=== PATIENT | male | born 1980 | race Caucasian/White ===

== ENCOUNTER 2019-11-21 16:34 | Emergency (ER) | payer SELFPAY ==
[2019-11-21] MEDS ORDERED: diphenhydrAMINE 25 MG CAP ONE (16:54)
[2019-11-21] MEDS ORDERED: predniSONE 20 MG TAB ONE (16:54)
== END 2019-11-21 17:00 | disposition home or self-care (01) ==
LOC: MADERS 16:34
DX: L23.7 Allergic contact dermatitis due to plants, except food (principal)
CPT/HCPCS: 99282; J7512; Q0163

== ENCOUNTER 2020-04-18 13:28 | Emergency (ER) | payer OTHER, SELFPAY ==
[2020-04-19 11:07] LABS: SARS-CoV-2 MS2 Positive; SARS-CoV-2 N Gene Negative; SARS-CoV-2 S Gene Negative; SARS-CoV-2 by NAA Not Detected (NotDetected); SARS-CoV-2 orf1ab Negative
== END 2020-04-18 14:14 | disposition home or self-care (01) ==
LOC: MADERS 13:28
DX: J30.9 Allergic rhinitis, unspecified (principal); Z20.828 Contact with and (suspected) exposure to other viral communicable diseases
CPT/HCPCS: 87635; 99283; U0003